=== PATIENT | male | born 1940 ===

== ENCOUNTER 2018-06-03 06:09 | Emergency (ER) | payer OTHER ==
[~2018-06-03] VITALS: Ht 170.2 cm; Wt 104.3 kg
[2018-06-03] MEDS ORDERED: TAMS0.4C (06:17)
[2018-06-03] MEDS ORDERED: METOPROLOL ER-1 EAC1 (06:17)
[2018-06-03] MEDS ORDERED: METFORMIN HCL500 M2 (06:18)
[2018-06-03] MEDS ORDERED: LASIX20 MG (06:18)
[2018-06-03] MEDS ORDERED: GLIMEPIRIDE1 MG (06:18)
== END 2018-06-03 09:25 | disposition home or self-care (01) ==
LOC: ER 06:09
DX: M62.81 Muscle weakness (generalized) (principal); M13.88 Other specified arthritis, other site; G57.83 Other specified mononeuropathies of bilateral lower limbs

== ENCOUNTER → 2019-12-27 | Outpatient (CLI) | payer OTHER ==
[~2019-12-27] MED LIST: GLIMEPIRIDE1 MG; LASIX20 MG; METFORMIN HCL500 M2; METOPROLOL ER-1 EAC1; TAMS0.4C
== END | disposition home or self-care (01) ==
LOC: RAD 10:56
PROVIDERS: ATTEND Internal Medicine
DX: I11.9 Hypertensive heart disease without heart failure (principal); E11.319 Type 2 diabetes mellitus with unspecified diabetic retinopathy without macular edema; H25.011 Cortical age-related cataract, right eye; E66.09 Other obesity due to excess calories; Z68.35 Body mass index [BMI] 35.0-35.9, adult; E03.8 Other specified hypothyroidism

== ENCOUNTER 2020-08-08 18:46 | Emergency (ER) | payer OTHER ==
[~2020-08-08] VITALS: Ht 175.3 cm; Wt 95.3 kg
== END 2020-08-08 22:37 | disposition home or self-care (01) ==
LOC: ER 18:46
DX: S70.02XA Contusion of left hip, initial encounter (principal); S70.12XA Contusion of left thigh, initial encounter; M25.552 Pain in left hip; M79.652 Pain in left thigh; W18.39XA Other fall on same level, initial encounter; Y93.89 Activity, other specified; Y92.098 Other place in other non-institutional residence as the place of occurrence of the external cause; Y99.8 Other external cause status

== ENCOUNTER 2020-11-28 06:50 | Emergency (ER) | payer OTHER ==
[~2020-11-28] VITALS: Ht 170.2 cm; Wt 107.0 kg
[2020-11-28] MEDS ORDERED: NEURONTIN600 M1 PO (07:16)
[2020-11-28] MEDS ORDERED: LEVOTHYROXINE25 MC2 PO (07:18)
[2020-11-28] MEDS ORDERED: JANUMET 50-1,01 EACH PO (07:19)
== END 2020-11-28 22:22 | disposition home or self-care (01) ==
LOC: ER 06:50
DX: E11.649 Type 2 diabetes mellitus with hypoglycemia without coma (principal); R06.03 Acute respiratory distress; Z79.84 Long term (current) use of oral hypoglycemic drugs

== ENCOUNTER 2021-01-05 06:53 | Emergency (ER) | payer OTHER ==
[~2021-01-05] VITALS: Ht 170.2 cm; Wt 103.9 kg
[~2021-01-05 06:53] MED LIST changes: +JANUMET 50-1,01 EACH PO; +LEVOTHYROXINE25 MC2 PO; +NEURONTIN600 M1 PO
[2021-01-05] MEDS ORDERED: LIDODERM1 EACH TOP (09:12)
== END 2021-01-05 10:31 | disposition home or self-care (01) ==
LOC: ER 06:53
DX: S30.0XXA Contusion of lower back and pelvis, initial encounter (principal); M54.2 Cervicalgia; W18.09XA Striking against other object with subsequent fall, initial encounter; Y93.89 Activity, other specified; Y92.013 Bedroom of single-family (private) house as the place of occurrence of the external cause; Y99.8 Other external cause status

== ENCOUNTER 2021-01-09 14:35 | Emergency (ER) | payer OTHER ==
[~2021-01-09] VITALS: Ht 165.1 cm; Wt 124.7 kg
[~2021-01-09 14:35] MED LIST changes: +LIDODERM1 EACH TOP
== END 2021-01-09 22:37 | disposition home or self-care (01) ==
LOC: ER 14:35
DX: K52.89 Other specified noninfective gastroenteritis and colitis (principal); I16.0 Hypertensive urgency

== ENCOUNTER 2021-08-25 10:14 | Outpatient (CLI) | payer OTHER | END 2021-08-25 10:17 | disposition home or self-care (01) | LOC: RAD 10:14 | PROVIDERS: ATTEND Internal Medicine | DX: H25.011 Cortical age-related cataract, right eye (principal); E88.89 Other specified metabolic disorders; E11.319 Type 2 diabetes mellitus with unspecified diabetic retinopathy without macular edema; E66.09 Other obesity due to excess calories; Z68.35 Body mass index [BMI] 35.0-35.9, adult; E03.9 Hypothyroidism, unspecified; E78.9 Disorder of lipoprotein metabolism, unspecified; E66.8 Other obesity; E11.42 Type 2 diabetes mellitus with diabetic polyneuropathy; E11.51 Type 2 diabetes mellitus with diabetic peripheral angiopathy without gangrene; Z79.84 Long term (current) use of oral hypoglycemic drugs ==